=== PATIENT | female | born 1980 | race Caucasian/White ===

== ENCOUNTER 2019-03-29 19:00 | Inpatient (IN) | payer OTHER ==
[2019-03-29] MEDS: DEXTROSE 5%-LACTATED RINGERS 1,000 ML IV SCH (19:45)
[2019-03-29 21:01] LABS: BASO % 0.2 % (0-2.0); HEMATOCRIT 33.7 % (32.4-45.2); HEMOGLOBIN 11.4 GM/dL (10.7-15.3); LYMPH % 16.5 % (8-40); MCH 31.3 pg (25.7-33.7); MCHC 33.7 g/dl (32.0-36.0); MEAN PLT VOLUME 11.4 fl (7.5-11.1); MONO % 5.4 % (3.8-10.2); NEUT % 76.9 % (42.8-82.8); PLATELET COUNT 147 K/MM3 (134-434); RBC 3.62 M/mm3 (3.60-5.2); RDW 13.4 % (11.6-15.6)
[2019-03-29 21:23] LABS: INR 0.9 (0.83-1.09); PROTHROMBIN TIME (PATIENT) 10.6 SEC (9.7-13.0)
[2019-03-29 21:26] LABS: ACTIVATED PTT 27.3 SECONDS (25.2-36.5)
[2019-03-29] MEDS ORDERED: FENTANYL/BUPIVACAINE/NS/PF - PCEA - 50 ML DISP.SYRIN EP ONE (21:27)
[2019-03-29] MEDS ORDERED: OXYTOCIN 30 UNITS in 0.9% NS 30 UNIT/500 ML INFUS.BAG IVPB ONE (21:27)
[2019-03-29 21:29] LABS: CALCIUM 8.9 mg/dL (8.5-10.1); CREATININE 0.7 mg/dL (0.55-1.3); POTASSIUM 3.9 mmol/L (3.5-5.1)
[2019-03-29] MEDS ORDERED: OXYTOCIN 30 UNITS in 0.9% NS 30 UNIT/500 ML INFUS.BAG IVPB SCH (21:30)
[2019-03-29] MEDS ORDERED: ELECTROLYTE-148 SOLN 1,000 ML IV SCH (21:30)
[2019-03-29] MEDS ORDERED: NALOXONE HCL 0.4 MG/ML VIAL IVPUSH PRN (21:31)
[2019-03-29] MEDS ORDERED: LIDO 2%/EPI 1:200000 PRESRVFRE (20 ML SDVIAL) ONE (21:33)
--- NOTE | 2019-03-29 21:36 | HP ---
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: Alzheimer's, CVA, Dementia, Migraine, Multiple Sclerosis, Peripheral Neuropathy, Parkinson's, Seizure, Syncope, TIA, Vertigo, Other Cardiovascular: No: AFIB, Aneurysm, Aortic Insufficiency, Aortic Stenosis, CAD, CHF, Deep Vein Thrombosis, HTN, Hyperlipdemia, [place], Mitral Insufficiency, Mitral Stenosis, Murmur, Pulmonary Hypertension, Other Pulmonary: No: Asthma, Bronchitis, Cancer, COPD, O2 Dependent, Pneumonia, Previously Intubated, Pulmonary Embolus, Pulmonary Fibrosis, Sleep Apnea, Other Gastrointestinal: No: Ascites, Cancer, Constipation, Crohn's Disease, Diverticulitis, Diverticulosis, Esophageal Varices, Gastritis, GERD, GI Bleed, Hemorrhoids, Hiatal Hernia, Inflamatory Bowel Disease, Irritable Bowel Disease, Pancreatitis, Peptic Ulcer Disease, Ulcerative Colitis, Other Hepatobiliary: No: Cirrhosis, Cholelithiasis, Cholecystitis, Choledocholithiasis , Hepatitis A, Hepatitis B, Hepatitis C, Other Renal/: No: Renal Failure, Renal Inusuff, BPH, Cancer, Hematuria, Hemodialysis , Neurogenic Bladder, Renal Calculi, UTI, Other Reproductive: No: Ectopic , Endometriosis, Fibroids, PID, Polycystic Ovary Syndrome, Postmenopausal, Other ...Para: 1 Heme/Onc: No: Anemia, B12 Deficiency, Bleeding Disorder, Cancer, Current Chemotherapy, Current Radiation Therapy, Hemochromatosis, Hypercoaguable State, Myeloproliferative Synd, Sickle Cell Disease, Sickle Cell Trait, Thrombocytopenia, Other Infectious Disease: No: AIDS, C-Diff, Herpes Zoster, HIV, MRSA, STD's, Tuberculosis, VREF, Other Psych: No: Addictions, Anxiety, Bipolar, Depression, Panic, Psychosis, Schizophrenia, Other Musculoskeletal: No: Bursitis, Chronic low back pain, Hemiparesis, Hemiplegia, Osteoarthritis, Paraplegia, Other Rheumatology: No: Fibromyalgia, Gout, Lupus, Rheumatoid Arthritis, Sarcoidosis, Vasculitis, Other ENT: No: Allergic Rhinitis, Sinusitis, Other Endocrine: No: [place]'s Disease, [place]'s Disease, Diabetes Insipidus, Diabetes Mellitus, Hyperparathyroidism, Hyperthyroidism, Hypothyroidism, Osteopenia, SIADH, Other Dermatology: No: Basal Cell, Cellulitis, Eczema, Melanoma, Psoriasis, Squamous Cell, Other - Past Surgical History Past Surgical History: No: None, AAA Repair, AICD, Amputation, Appendectomy, Arthrosocopy, AV Fistula/Graft, Bariatric Surgery, Breast Biopsy, Bypass, CABG, Carotid Endarterectomy, Cataract Removal, Cholecystectomy, Colectomy, Colonoscopy, Colostomy, Craniotomy, , Cystectomy, Hernia Repair, Hysterectomy, Ileal Conduit, Ileosotomy, Joint Replacement, Kidney Transplant, Laminectomy, Liver Transplant, Mastectomy, Nephrectomy, Oopherectomy, Orchiectomy, Permanent Pacemaker, Prostatectomy, Splenectomy, Stent, Thoracotomy , TURP, Tonsillectomy, Tubal Ligation, Upper Endoscopy, Valve Replacement, Vasectomy, Vein Stripping/Ligation Hx Myomectomy: No Hx Transabdominal Cerclage: No - Advance Directives Advance Directives: Yes: Living Will - Smoking History Smoking history: Former smoker Have you smoked in the past 12 months: Yes Aproximately how many cigarettes per day: 6 If you are a former smoker, when did you quit?: during - Alcohol/Substance Use Hx Alcohol Use: Yes (socially ) Number of Drinks Daily: 1 History of Substance Use: reports: None - Social History Usual Living Arrangement: Yes: With Significant Other Do you think of yourself as: Straight/Heterosexual ADL: Independent History of Recent Travel: No Home Medications - Allergies Allergies/Adverse Reactions: Allergies Allergy/AdvReac Type Severity Reaction Status Date / Time No Known Allergies Allergy Verified 03/29/19 20:46 - Home Medications Home Medications: Ambulatory Orders Vitamins (Sjr) - 1 tab PO DAILY 03/29/19 Family Medical History Family History: Denies Review of Systems - Review of Systems Constitutional: reports: No Symptoms Eyes: reports: No Symptoms HENT: reports: No Symptoms Neck: reports: No Symptoms Cardiovascular: reports: No Symptoms Respiratory: reports: No Symptoms Gastrointestinal: reports: No Symptoms Genitourinary: reports: No Symptoms Breasts: reports: No Symptoms Reported Musculoskeletal: reports: No Symptoms Integumentary: reports: No Symptoms Neurological: reports: No Symptoms Endocrine: reports: No Symptoms Hematology/Lymphatic: reports: No Symptoms Psychiatric: reports: No Symptoms Physical Exam - Maternity Vital Signs: Vital Signs Temperature Pulse Rate 71 03/29/19 21:00 Respiratory Rate 20 03/29/19 21:00 Blood Pressure 127/62 03/29/19 21:00 O2 Sat by Pulse Oximetry (%) Constitutional: Yes: Well Nourished, No Distress, Calm Eyes: Yes: WNL, Conjunctiva Clear, EOM Intact HENT: Yes: WNL, Atraumatic, Normocephalic Neck: Yes: WNL, Supple, Trachea Midline Cardiovascular: Yes: WNL, Regular Rate and Rhythm Lungs: Clear to auscultation Breast(s): Yes: WNL - Abdominal Exam/OB Fundal Height: 38 Number of Fetuses: Single Presentation: Vertex Contractions: Yes Regularity: Irregular Intensity: Moderate Monitor Mode: External Heart Rate (range): [address]: [facility] Category: I Accelerations: Uniform Decelerations: None - Vaginal Exam/OB Vaginal Bleediing: No Speculum Exam: No Dilatation (cm): 4 Effacement (%): 60 Amniotic Membrane Status: Intact Presentation: Vertex/Position Station: -2 - Physical Exam Musculoskeletal: Yes: WNL Extremities: Yes: WNL Edema: Yes Edema: LUE: 1+, RUE: 1+, LLE: 1+, RLE: 1+ Integumentary: Yes: WNL Deep Tendon Reflex Grade: Normal +2 ...Motor Strength: WNL Psychiatric: Yes: WNL, Alert, Oriented - Labs Lab Results: CBC, BMP 03/29/19 20:15 03/29/19 20:15 Hemorrhage Risk Assessment - Risk Factors Medium Risk Factors: Yes: None High Risk Factors: Yes: None Risk Score: 1 Risk Level: Medium Risk Assessment/Plan for pitocin, augment, and asking for epidural
[2019-03-29] MEDS ORDERED: FENTANYL/BUPIVACAINE/NS/PF - PCEA - 50 ML DISP.SYRIN EP SCH (21:45)
[2019-03-29 22:39] VITALS: BMI 29.6
[2019-03-30] MEDS ORDERED: OXYTOCIN 20 UNITS in 0.9% NS 20 UNIT/1,000 ML INFUS.BAG IV ONE ×2 (00:46→05:49)
[2019-03-30] MEDS ORDERED: oxyCODONE HCL 5 MG TABLET PO PRN (01:15)
[2019-03-30] MEDS ORDERED: BISACODYL 10 MG SUPP.RECT RC PRN (01:15)
[2019-03-30] MEDS ORDERED: BENZOCAINE 28 GM HEMORRHOIDAL OINTMENT TP PRN (01:15)
[2019-03-30] MEDS ORDERED: METHYLERGONOVINE MALEATE 0.2 MG/1 ML AMP IM PRN (01:15)
[2019-03-30] MEDS ORDERED: WITCH HAZEL 50% (TUCKS) 40 PAD/JAR PAD TP PRN (01:15)
[2019-03-30] MEDS ORDERED: OXYTOCIN 20 UNITS in 0.9% NS 20 UNIT/1,000 ML INFUS.BAG IV SCH (01:15)
--- NOTE | 2019-03-30 01:20 | PN ---
Progress Note (short form) - Note Progress Note: 12 45 am, fully dilated , pushing soon
--- NOTE | 2019-03-30 01:26 | PN ---
Delivery - Delivery Type of Anesthesia: Epidural Episiotomy/Laceration: Right Mediolateral EBL (cc): 200 Delivery, Single - Stages of Labor Date 1st Stage Initiatied: 03/30/19 Date 2nd Stage Initiated: 03/30/19 Date of Delivery: 03/30/19 Date Placenta Delivered: 03/30/19 Placenta: Yes: Spontaneous - Condition of Milling Machine Set Up Operator/Print Decorator Present: No Infant Gender: Male Position: Left, OA - Feeding Plan Initial Plan: Elected not to breastfeed exclusively throughout hospitalization Remarks - Remarks Remarks: no complications
[2019-03-30] MEDS: IBUPROFEN 600 MG TABLET (FP) PO PRN ×4 (05:53→20:42)
[2019-03-30] MEDS: BENZOCAINE 20% 57 GM BOTTLE TP PRN (05:53)
[2019-03-30] MEDS: ACETAMINOPHEN 325 MG TABLET (FP) PO PRN ×4 (05:53→20:42)
--- NOTE | 2019-03-30 08:37 | PN ---
Progress Note (short form) - Note Progress Note: Post op day#1.S/P C section under spinal anesthesia uneventful.Patient stable and has little pain for which she is on medication.No any anesthesia related problem.Patient Dc from the anesthesia care.
[2019-03-30] MEDS: DEXTROSE 5%-LACTATED RINGERS 1,000 ML IV SCH (21:53)
[2019-03-31] MEDS: ACETAMINOPHEN 325 MG TABLET (FP) PO PRN ×4 (02:38→18:15)
[2019-03-31] MEDS: IBUPROFEN 600 MG TABLET (FP) PO PRN ×4 (02:38→18:15)
[2019-03-31 08:40] LABS: BASO % 0.4 % (0-2.0); EOS % 1.8 % (0-4.5); HEMATOCRIT 31.2 % (32.4-45.2); HEMOGLOBIN 10.7 GM/dL (10.7-15.3); LYMPH % 20.3 % (8-40); MCH 32.2 pg (25.7-33.7); MCHC 34.2 g/dl (32.0-36.0); MEAN CELL VOLUME 94.2 fl (80-96); MEAN PLT VOLUME 11.1 fl (7.5-11.1); NEUT % 72.5 % (42.8-82.8); PLATELET COUNT 138 K/MM3 (134-434); RBC 3.31 M/mm3 (3.60-5.2); RDW 13.3 % (11.6-15.6); WHITE BLOOD COUNT 9.8 K/mm3 (4.0-10.0)
[2019-03-31] MEDS ORDERED: SENNOSIDES/DOCUSATE COMBO (SENNA PLUS) TABLET (UD) PO PRN (22:00)
[2019-03-31] MEDS: BENZOCAINE 20% 57 GM BOTTLE TP PRN (22:12)
[2019-04-01] MEDS: IBUPROFEN 600 MG TABLET (FP) PO PRN ×2 (02:48→08:02)
[2019-04-01] MEDS: ACETAMINOPHEN 325 MG TABLET (FP) PO PRN ×2 (02:48→08:03)
--- NOTE | 2019-04-01 09:39 | PN ---
Post Progress Note Post Day: 1 Type of Delivery: Vital Signs: Vital Signs Temperature 98.7 F 03/31/19 22:00 Pulse Rate 86 03/31/19 22:00 Respiratory Rate 18 03/31/19 22:00 Blood Pressure 134/67 03/31/19 22:00 O2 Sat by Pulse Oximetry (%) 100 03/30/19 02:20 Breast Exam: Yes: Soft Uterus: Yes: Fundus Firm Abdomen/GI: Yes: Abdomen soft, Passing flatus, Tolerating PO Lochia: Yes: Serosa Lochia, amount: Small Extremities: Yes: Calves non-tender Perineum: Yes: Episiotomy Activity: Ambulating - Labs Labs: CBC WBC 9.8 K/mm3 (4.0-10.0) 03/31/19 08:00 RBC 3.31 M/mm3 (3.60-5.2) L 03/31/19 08:00 Hgb 10.7 GM/dL (10.7-15.3) 03/31/19 08:00 Hct 31.2 % (32.4-45.2) L 03/31/19 08:00 MCV 94.2 fl (80-96) 03/31/19 08:00 MCH 32.2 pg (25.7-33.7) 03/31/19 08:00 MCHC 34.2 g/dl (32.0-36.0) 03/31/19 08:00 RDW 13.3 % (11.6-15.6) 03/31/19 08:00 Plt Count 138 K/MM3 (134-434) 03/31/19 08:00 MPV 11.1 fl (7.5-11.1) 03/31/19 08:00 Absolute Neuts (auto) 7.1 K/mm3 (1.5-8.0) 03/31/19 08:00 Neutrophils % 72.5 % (42.8-82.8) 03/31/19 08:00 Lymphocytes % 20.3 % (8-40) D 03/31/19 08:00 Monocytes % 5.0 % (3.8-10.2) 03/31/19 08:00 Eosinophils % 1.8 % (0-4.5) 03/31/19 08:00 Basophils % 0.4 % (0-2.0) 03/31/19 08:00 Nucleated RBC % 0 % (0-0) 03/31/19 08:00 Assessment/Plan dc pt home today
--- NOTE | 2019-04-01 09:42 | DS ---
Physical Exam-TEACHING AIDE Vital Signs: Vital Signs Temperature 98.7 F 03/31/19 22:00 Pulse Rate 86 03/31/19 22:00 Respiratory Rate 18 03/31/19 22:00 Blood Pressure 134/67 03/31/19 22:00 O2 Sat by Pulse Oximetry (%) 100 03/30/19 02:20 Constitutional: Yes: Well Nourished, No Distress, Calm Eyes: Yes: WNL, Conjunctiva Clear, EOM Intact HENT: Yes: WNL, Atraumatic, Normocephalic Neck: Yes: WNL, Supple, Trachea Midline Cardiovascular: Yes: WNL, Regular Rate and Rhythm Respiratory: Yes: WNL, Regular, CTA Bilaterally Gastrointestinal: Yes: WNL, Normal Bowel Sounds, Soft ...Rectal Exam: Yes: WNL Renal/: Yes: WNL Pelvis: Yes: WNL External Genitalia: Yes: Normal Internal Exam Deferred: No Vaginal Exam: Yes: Normal Cervix: Yes: Normal Uterus: Yes: Normal Adnexa: Normal: Bilateral ....Post : Yes: Uterus firm, Uterus non-tender Breast(s): Yes: WNL Musculoskeletal: Yes: WNL Extremities: Yes: WNL Edema: Yes Edema: LUE: 1+, RUE: 1+, LLE: 1+, RLE: 1+ Integumentary: Yes: WNL Wound/Incision: Yes: Clean/Dry, Well Approximated Neurological: Yes: WNL, Alert, Oriented ...Motor Strength: WNL Psychiatric: Yes: WNL, Alert, Oriented Labs: CBC, BMP 03/31/19 08:00 03/29/19 20:15 Delivery - Delivery Type of Anesthesia: Epidural Episiotomy/Laceration: Right Mediolateral EBL (cc): 200 Delivery, Single - Stages of Labor Date 1st Stage Initiatied: 03/30/19 Time 1st Stage Initiated: 14:00 Date 2nd Stage Initiated: 03/30/19 Time 2nd Stage Initiated: 00:40 Date of Delivery: 03/30/19 Time of Delivery: 00:55 Time Placenta Delivered: 01:00 Placenta: Yes: Spontaneous - Condition of Twisting Frame Operator/Automobile Mechanic Assistant Present: No Gender: Male Weight: 3.09 kg Position: Left, OA Total Hours ROM (Hrs/Mins): 3hrs 35min - 1 Minute Total Score: 9 5 Minutes Total Score: 9 - [place] Feeding Plan Initial Plan: Elected not to breastfeed exclusively throughout hospitalization Discharge Summary Problems reviewed: Yes Reason For Visit: LABOR Procedures: Principal: gregoria Hospital Course: uneventful Health Concerns: none Plan of Treatment: oob Condition: Good - Instructions Diet, Activity, Other Instructions: Physical activity Resume your normal everyday activity as tolerated no heavy lifting or exercise until seen by your surgeon. You may walk unlimited farhad of and climb stairs. You may resume driving the car when you feel safe and comfortable behind the wheel. No sexual activity as instructed. Wound care If you have a bandage, leave it on, and keep dry for 48-72 hours. After that time discard the outer bandage. If they are tapes on the skin under the out of bandage leave them in place. They will peel off in the next 7 to 10 days. Do Not Peel them off. You may shower the day after surgery. If there are tapes present on the skin, you may shower over them. Diet There are no dietary restrictions. Eat healthy, high-fiber foods. Drink 6 to 8 glasses of liquid each day. This will assist in keeping your bowels are regular. Pain management You may take Tylenol or acetaminophen or Ibuprofen (for example, Motrin, Advil etc.) from my pain prescription medication is ordered should be taken as prescribed for moderate to severe pain. Call MD for any of the following: call dr flynn for 6 weeks apponitment Severe pain not relieved by medication Fever of 101 or higher Excessive bleeding or drainage on dressing Inability to urinate Disposition: HOME - Home Medications Comprehensive Discharge Medication List: Ambulatory Orders Vitamins (Sjr) - 1 tab PO DAILY 03/29/19 Prescription Drug Monitoring Program (I-STOP) results: I-STOP reviewed and no issues identified
[2019-04-01 13:00] VITALS: BP 117/63; PULSE 71; TEMP 97.8
== END 2019-04-01 11:55 | disposition home or self-care (01) | DRG 560 ==
LOC: JDEL 19:00 → JERBED 19:20 → JLDR 19:38 → J3W 03-30 03:21
PROVIDERS: ADMIT Obstetrics & Gynecology; ATTEND Obstetrics & Gynecology
PROC: 10E0XZZ Delivery of Products of Conception, External Approach (ICD-10-PCS; principal; 2019-03-30)
PROC: 0W8NXZZ Division of Female Perineum, External Approach (ICD-10-PCS; 2019-03-30)
DX: O80 Encounter for full-term uncomplicated delivery (principal); Z3A.39 39 weeks gestation of pregnancy; Z37.0 Single live birth
CPT/HCPCS: 36415; 59409; 80048; 85025; 85610; 85730; 86593; 86850; 86900; 86901; 87389

== ENCOUNTER 2022-08-20 13:11 | Emergency (ER) | payer OTHER ==
[2022-08-20 13:19] VITALS: BP 118/76; PULSE 94; RESP 18; TEMP 98.6; BMI 21.1
== END 2022-08-20 15:57 | disposition home or self-care (01) ==
LOC: JERFT 13:11
PROC: 0HQ1XZZ Repair Face Skin, External Approach (ICD-10-PCS; principal; 2022-08-20)
DX: S01.81XA Laceration without foreign body of other part of head, initial encounter (principal); W26.8XXA Contact with other sharp object(s), not elsewhere classified, initial encounter
CPT/HCPCS: 99282-25